=== PATIENT | female | born 1965 | race Hispanic/Latino ===

== ENCOUNTER 2017-12-08 21:39 | Emergency (ER) | payer BC ==
[2017-12-08 22:08] LABS: APPEARANCE,URINE Cloudy (CLEAR); BILIRUBIN,URINE Negative (NEGATIVE); COLOR,URINE Dark Yellow (YELLOW); GLUCOSE, URINE (UA) Negative (NEGATIVE); KETONES,URINE 40 mg/dL (NEGATIVE); LEUKOCYTE ESTERASE ,URINE Small (NEGATIVE); NITRATE,URINE Negative (NEGATIVE); OCCULT BLOOD,URINE Small (NEGATIVE); PROTEIN,URINE Trace (NEGATIVE)
[2017-12-08 22:18] LABS: MUCUS,URINE Many LPF (None Seen); RBC,URINE None Seen /HPF (0-1)
[2017-12-08 22:19] LABS: BACTERIA,URINE Few /HPF (None Seen)
[2017-12-08] MEDS ORDERED: ONDANSETRON HCL 4 MG/2 ML VIAL ONE (22:30)
[2017-12-08 22:52] LABS: CREATININE 0.8 mg/dL (0.5-1.5); POTASSIUM 3.7 mmol/L (3.5-5.1)
[2017-12-09] MEDS ORDERED: ONDANSETRON HCL 4 MG/2 ML VIAL ONE
[2017-12-09] MEDS ORDERED: SODIUM CHLORIDE 0.9% 1000ML 1,000 ML IV ONE (01:30)
[2017-12-09] MEDS ORDERED: METOCLOPRAMIDE 10 MG/2 ML VIAL ONE (01:35)
== END 2017-12-09 03:10 | disposition home or self-care (01) ==
LOC: EDH 21:39
DX: R11.2 Nausea with vomiting, unspecified (principal); R10.9 Unspecified abdominal pain; Z98.890 Other specified postprocedural states; Z79.899 Other long term (current) drug therapy
CPT/HCPCS: 36415; 80048; 81001; 87088; 96361; 96374; 96375; 96376; 99285; J2405 ×2; J2765; J7030